=== PATIENT | female | born 1935 | race Caucasian/White ===

== ENCOUNTER 2020-02-08 21:10 | Emergency (ER) | payer OTHER ==
[~2020-02-08] VITALS: Ht 172.7 cm; Wt 77.1 kg
[~2020-02-08 21:10] MED LIST: ALEVE220 M1 PO; ALLEGRA ALLERG180 MG PO; BUSPIRONE HCL10 MG PO; CENTRUM SILVER1 EAC2 PO; CEPACOL SORE T1 EAC8 PO; COLACE 100 MG100 MG PO; ENOXAPARIN40 MG/0.1 SUBQ; FLONASE 0.05%50 MCG NASAL; HYDROCODON-ACE1 EAC7 PO; LEVOTHROID; PEPCID20 MG PO; SYNTHROID200 MCG PER TUBE; TUMS PO; VITAMIN D1000 UNI1 PO; VITAMINC500 PO; ZOLOFT50 MG PO
[2020-02-08 21:30] LABS: ABSOLUTE NEUTROPHILS 3.6 thou/uL (1.4-8.2); BASOPHILS 0.8 % (0.0-2.0); EOSINOPHILS 6.6 % (0.0-3.0); HEMATOCRIT 41.2 % (37.0-47.0); HEMOGLOBIN 13.4 gm/dL (12.0-15.0); LYMPHOCYTES 24.8 % (24.0-44.0); MCH 31.2 pg (26.0-34.0); MCHC 32.6 g/dL (28.0-37.0); MCV 95.6 fL (80.0-100.0); MONOCYTES 8.1 % (1.0-8.0); PLATELET COUNT 353 thou/uL (150-400); POLYS 59.7 % (36.0-66.0); RBC 4.31 mil/uL (4.20-5.00); RDW 14.6 % (10.5-14.5); WBC 6.1 thou/uL (4.0-11.0)
[2020-02-08 21:34] LABS: CALCIUM 9.1 mg/dL (8.5-10.1); CREATININE 0.5 mg/dL (0.6-1.0); POTASSIUM 4.3 mmol/L (3.5-5.1)
[2020-02-08 21:40] LABS: ALBUMIN 2.9 g/dL (3.4-5.0); TOTAL BILIRUBIN 0.4 mg/dL (0.2-1.0); TOTAL PROTEIN 6.5 g/dL (6.4-8.2)
[2020-02-08 22:14] LABS: APTT 29.9 Seconds (24.5-32.8); INR 1.1; PROTIME 11.4 Seconds (9.3-11.4)
[2020-02-08] MEDS ORDERED: FLEXERIL PO (23:55)
[2020-02-09] MEDS ORDERED: ZYRTEC 10 MG TA10 MG PO (00:39)
[2020-02-09] MEDS ORDERED: SYNTHROID150 MCG PO (00:41)
[2020-02-09] MEDS ORDERED: BUSPIRONE HCL10 MG PO (00:42)
[2020-02-09] MEDS ORDERED: VITAMIN D310 MCG PO (00:44)
[2020-02-09] MEDS ORDERED: ELIQUIS5 MG PO (00:44)
[2020-02-09] MEDS ORDERED: FLONASE 0.05%50 MCG NASAL (00:44)
[2020-02-09] MEDS ORDERED: HYDROCORTISONE120 M1 TOP (00:47)
[2020-02-09] MEDS ORDERED: CYTOMEL 5MCG TA5 MCG PO (00:49)
[2020-02-09] MEDS ORDERED: LOPERAMIDE 2 MG2 M1 PO (00:49)
[2020-02-09] MEDS ORDERED: SUPER THERAVIT1 EACH PO (00:50)
[2020-02-09] MEDS ORDERED: TYLENOL325 MG PO (00:51)
[2020-02-09] MEDS ORDERED: ZOLOFT100 MG PO (00:51)
[2020-02-09] MEDS ORDERED: VITAMIN C500 M1 PO (00:52)
[2020-02-09 01:51] VITALS: BP 169/88
== END 2020-02-09 01:51 | disposition home or self-care (01) ==
LOC: ER 21:10
PROVIDERS: Emergency Medicine
DX: R04.0 Epistaxis (principal); E03.9 Hypothyroidism, unspecified; Z96.653 Presence of artificial knee joint, bilateral; Z79.899 Other long term (current) drug therapy; Z91.040 Latex allergy status; Z88.1 Allergy status to other antibiotic agents; Z88.8 Allergy status to other drugs, medicaments and biological substances